=== PATIENT | female | born 1985 | race Caucasian/White ===

== ENCOUNTER 2018-07-08 19:09 | Emergency (ER) | payer BC, OTHER ==
[2018-07-08 19:14] VITALS: BP 120/80; PULSE 67; TEMP 98; BMI 28.1
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
[2018-07-08] MEDS ORDERED: KETOROLAC TROMETHAMINE 60 MG/2 ML VIAL IM ONE (20:27)
[2018-07-08] MEDS ORDERED: KETOROLAC TROMETHAMINE 60 MG/2 ML VIAL ONE (20:29)
== END 2018-07-08 21:55 | disposition home or self-care (01) ==
LOC: FER 19:09
PROC: 3E0233Z Introduction of Anti-inflammatory into Muscle, Percutaneous Approach (ICD-10-PCS; principal; 2018-07-08)
DX: S33.5XXA Sprain of ligaments of lumbar spine, initial encounter (principal); X58.XXXA Exposure to other specified factors, initial encounter; Y93.89 Activity, other specified; Y92.9 Unspecified place or not applicable; K80.80 Other cholelithiasis without obstruction
CPT/HCPCS: 72100-TC-FY; 84703; 99282-25